=== PATIENT | male | born 1980 | race Caucasian/White ===

== ENCOUNTER 2022-08-16 14:13 | Emergency (ER) | payer OTHER, SELFPAY ==
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
--- NOTE | ~2022-08-16 | XR_ITS ---
EXAM: XR wrist LT min 3V DATE: 08/16/2022 17:15 HISTORY: left wrist pain post fall today . COMPARISON: None available. FINDINGS: Normal mineralization. No fracture or dislocation. No lytic or blastic lesion. Joint space s are maintained. No erosion or periosteal change. Soft tissues within normal limits. IMPRESSION: No acute osseous finding in the left wrist. Reviewed, dictated and finalized at location K.
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
[2022-08-16 14:24] VITALS: BP 117/87; PULSE 103; RESP 16; TEMP 36.5; O2SAT 98
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
[2022-08-16 18:00] VITALS: BP 116/68; PULSE 92; RESP 16; TEMP 36.8; O2SAT 99
[2022-08-16] MEDS: HYDROcodone/acetaminophen (*CRX) 5-325 MG TABLET 1 TAB PO (19:51)
[2022-08-16 20:01] VITALS: BP 142/70; PULSE 90; RESP 16; O2SAT 98
== END 2022-08-16 20:03 | disposition home or self-care (01) ==
PROVIDERS: Emergency Provider Emergency Medicine
DX: S79.912A Unspecified injury of left hip, initial encounter (principal); S69.92XA Unspecified injury of left wrist, hand and finger(s), initial encounter; S82.52XD Displaced fracture of medial malleolus of left tibia, subsequent encounter for closed fracture with routine healing; S42.112D Displaced fracture of body of scapula, left shoulder, subsequent encounter for fracture with routine healing; W18.39XA Other fall on same level, initial encounter; V49.9XXD Car occupant (driver) (passenger) injured in unspecified traffic accident, subsequent encounter
CPT/HCPCS: 71101; 73030; 73110; 73502; 73610; 73700; 99284; A9270

== ENCOUNTER 2023-01-22 09:33 | Outpatient (CLI) | payer OTHER, SELFPAY ==
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
== END 2023-01-22 09:34 | disposition home or self-care (01) ==
LOC: ANHNEURO 09:38
PROVIDERS: PCP Internal Medicine
DX: S42.102A Fracture of unspecified part of scapula, left shoulder, initial encounter for closed fracture (principal); R20.0 Anesthesia of skin; R20.2 Paresthesia of skin; X58.XXXA Exposure to other specified factors, initial encounter; G56.22 Lesion of ulnar nerve, left upper limb
CPT/HCPCS: 95886; 95909